=== PATIENT | female | born 1965 | race Caucasian/White ===

== ENCOUNTER 2017-08-22 00:56 | Emergency (ER) | payer MEDICARE ==
[2017-08-22] MEDS ORDERED: Phenergan 25 MG INJ IV ONE (01:36)
[2017-08-22] MEDS ORDERED: BABY ASPIRIN 81 MG CHEW PO ONE (01:36)
[2017-08-22] MEDS ORDERED: Nitrostat 0.4 MG (ED) SL ONE (01:36)
--- NOTE | 2017-08-22 01:36 | ERPHSYRPT ---
- History of Present Illness Time Seen by Provider: 08/22/17 01:52 Source: patient, family (CAREGIVER) Exam Limitations: no limitations Physician History: FOR ABOUT THE PAST 12 HOURS PT HAS HAD INTERMITTENT LEFT THIGH PAIN WITH MOVEMENT AND WEIGHT BEARING. PT DENIES RECENT INJURY TO THE LEFT THIGH, NUMBNESS , WEAKNESS, FEVER, DYSURIA. Allergies/Adverse Reactions: Penicillins Allergy (Verified 08/22/17 02:39) Home Medications: Benztropine Mesylate 1 tab PO BID 08/22/17 [History] Donepezil HCl 10 mg [Aricept 10 MG] 1 tab PO HS 08/22/17 [History] Escitalopram Oxalate 1 tab PO QAM 08/22/17 [History] Mirabegron [Myrbetriq] 1 tab PO BID 08/22/17 [History] Risperidone [Risperdal] 1 tab PO HS 08/22/17 [History] - Review of Systems Constitutional: No Fever Respiratory: No Dyspnea Cardiac: No Chest Pain Abdominal/Gastrointestinal: No Abdominal Pain Musculoskeletal: Other (LEFT THIGH PAIN) Neurological: No Headache All Other Systems: Reviewed and Negative - Nursing Vital Signs Nursing Vital Signs: Initial Vital Signs Temperature 98.2 F 08/22/17 02:30 Pulse Rate 72 08/22/17 02:30 Respiratory Rate 20 08/22/17 02:30 Blood Pressure 139/66 08/22/17 02:30 O2 Sat by Pulse Oximetry 97 08/22/17 02:30 Pain Scale Pain Intensity 4 - Physical Exam General Appearance: alert Eye Exam: PERRL/EOMI Ears, Nose, Throat Exam: TMs normal, pharynx normal, moist mucous membranes Neck Exam: normal inspection Respiratory Exam: lungs clear Cardiovascular Exam: normal heart sounds Gastrointestinal/Abdomen Exam: soft, normal bowel sounds Back Exam: normal range of motion Extremity Exam: other (ROM OF THE LEFT HIP WITH PAIN; OLD BRUISING OF THE SUPERIOR ANTERIOR ASPECT OF THE LEFT THIGH.), No pedal edema, No tenderness Neurologic Exam: alert, cooperative Skin Exam: rash (SUPERFICIAL SCRATCHES ON BOTH SHINS) - Course Nursing assessment & vital signs reviewed: Yes - Radiology Exams Pelvis X-ray Interpretation: Interpreted by me, No Fracture Left Femur X-ray Interpretation: Interpreted by me, No Fracture - CT Exams Pelvis CT Interpretation: No Fracture Ordered Tests: Active Orders 24 hr Category Date Time Status Electrotype Servicer STAT Care 08/22/17 01:37 Inactive Clean Catch Urine Specimen STAT Care 08/22/17 01:36 Inactive EKG-ER Only STAT Care 08/22/17 01:36 Inactive IV Insertion STAT Care 08/22/17 01:36 Inactive Oxygen-ED Only NASAL CANNULA 2 lpm Care 08/22/17 01:36 Inactive Pulse Oximetry (ED) STAT Care 08/22/17 01:36 Inactive FEMUR Stat Exams 08/22/17 02:59 Taken PELVIS (1 OR 2 VIEWS) Stat Exams 08/22/17 02:59 Taken PELVIS WITHOUT CONTRAST [CT] Stat Exams 08/22/17 03:33 Taken VENOUS UNILAT/LIMITED EXTREMIT [US] Stat Exams 08/22/17 02:36 Taken Medication Summary Discontinued Medications Generic Name Dose Route Start Last Admin Trade Name Freq PRN Reason Stop Dose Admin Aspirin 324 mg 08/22/17 01:36 08/22/17 02:44 Baby Aspirin 81 Mg Chew PO 08/22/17 01:37 Not Given STAT ONE Diazepam 10 mg 08/22/17 01:38 08/22/17 02:46 Valium 5 Mg PO 08/22/17 01:39 Not Given STAT ONE Sodium Chloride 1,000 mls @ 100 mls/hr 08/22/17 01:45 08/22/17 02:46 Sodium Chloride 0.9% 1000 Ml IV 09/21/17 01:44 Not Given .Q10H CHRISTOPHER Nitroglycerin 0.4 mg 08/22/17 01:36 08/22/17 02:45 Nitrostat 0.4 Mg (Ed) SL 08/22/17 01:37 Not Given STAT ONE Promethazine HCl 12.5 mg 08/22/17 01:36 08/22/17 02:45 Phenergan 25 Mg Inj IV 08/22/17 01:37 Not Given STAT ONE - Departure Time of Disposition: 05:08 Departure Disposition: Home Clinical Impression: LEFT THIGH PAIN Condition: Stable Critical Care Time: No Referrals: BIANCA ROBERTS MD [Primary Care Provider] - Instructions: Contusion (DC) Additional Instructions: FOLLOW UP WITH PRIVATE DOCTOR TOMORROW. LIMIT WALKING. Prescriptions: Naproxen [Naprosyn] 500 mg PO [id number] PRN #20 tablet PRN Reason: Pain
[2017-08-22] MEDS ORDERED: Valium 5 MG PO ONE (01:38)
[2017-08-22] MEDS ORDERED: Sodium Chloride 0.9% 1000 ML 1,000 ML IV SCH (01:45)
[2017-08-22 02:39] VITALS: BP 139/66; PULSE 72; O2SAT 97
--- NOTE | 2017-08-22 08:33 | XRAY ---
Indication: Pain. Two-dimensional sonogram and color Doppler imaging of the major venous vessels of the left leg was performed. Comparison: None. No thrombus seen in the examined deep venous vessels of the left leg including greater saphenous vein. Veins demonstrate normal compressibility. Venous waveforms are normal with and without augmentation. Impression: Left leg negative for DVT. Comment: Preliminary report was given.
--- NOTE | 2017-08-22 09:00 | XRAY ---
Indication: Left hip/pelvic pain. No known injury. Comparison: None 2 views of the left femur obtained. No bony, articular, or soft tissue abnormalities.
--- NOTE | 2017-08-22 09:02 | XRAY ---
Indication: Left hip/pelvic pain. No known injury. Comparison: None Single AP pelvis obtained. No bony, articular, or soft tissue abnormalities.
--- NOTE | 2017-08-22 09:04 | XRAY ---
Indication: Left hip/pelvic pain. No known injury. Multiple contiguous axial images obtained through the pelvis with special attention to the osseous structures. Sagittal and coronal reformatted images obtained. Comparison: None No acute fracture, dislocation, or suspicious bony lesions. Visualized noncontrasted soft tissues including pelvic contents unremarkable. Impression: Negative CT pelvis. Comment: Preliminary interpretation was made by [facility]. No discrepancy. CT DI 22.59
== END 2017-08-22 05:19 | disposition home or self-care (01) ==
LOC: ED 00:56
DX: M79.652 Pain in left thigh (principal)
CPT/HCPCS: 72170; 72192; 73552; 93971; 96374; 99284

== ENCOUNTER 2020-03-22 05:54 | Day surgery (SDC) | payer MEDICARE ==
[2020-03-22] MEDS ORDERED: Lactated Ringers 1,000 ML IV SCH (06:00)
[2020-03-22] MEDS ORDERED: DIPRIVAN 200 MG/20 ML IV ONE (08:03)
[2020-03-22 09:21] VITALS: PULSE 54; O2SAT 99
[2020-03-22 09:26] VITALS: BP 129/71
--- NOTE | 2020-03-22 14:10 | OP ---
SURGERY DATE/TIME: 03/22/2020 0804 PREOPERATIVE DIAGNOSIS: Diarrhea. POSTOPERATIVE DIAGNOSIS: Normal colon. PROCEDURE: Colonoscopy. SURGEON: Dr. Martin. ANESTHESIA: MAC. Medications given by anesthesia department. HISTORY: The patient is a 55 year old white female who presents now for complaints of diarrheal stools but no bleeding. The patient has never had a previous endoscopic evaluation. The patient was appraised of the risks of the procedure including the risk of perforation, phlebitis, untoward reaction to medication, bleeding and missed lesions. The patient verbalized her understanding and desired to have the procedure performed. DESCRIPTION OF PROCEDURE: The patient was given the medications by the anesthesia department. She had continuous pulse oximetry, ECG monitoring, intermittent blood pressure monitoring and tidal CO2 monitoring during the examination. She was placed in the left lateral decubitus position. A digital rectal examination was performed and revealed normal anal sphincter tone and no masses. The flexible Olympus pediatric colonoscope was used to intubate the rectum. A view of the colon was developed sequentially to the cecum as identified by the appendiceal orifice and the ileocecal valve. Upon insertion and withdrawal, including a retroflex view in the rectum was noted no mucosal lesions. The scope was removed from the patient who tolerated the procedure well and was sent back to OP recovery in good condition. The prep was noted to be fair.
== END 2020-03-22 09:25 | disposition home or self-care (01) ==
LOC: SDC 05:54
PROVIDERS: ATTEND Family Medicine
DX: R19.7 Diarrhea, unspecified (principal)
CPT/HCPCS: J2704